=== PATIENT | female | born 1935 | race Caucasian/White ===

== ENCOUNTER 2017-05-20 09:46 | Emergency (ER) | payer MEDICARE, OTHER ==
[~2017-05-20] VITALS: Ht 167.6 cm; Wt 77.3 kg
[~2017-05-20 09:46] MED LIST: ALTACE10 MG PO; BUSPIRONE PO; BYSTOLIC5 MG PO; DIOVAN160 MG PO; DIOVAN320 MG PO; FISH OIL CONC1000 MG PO; FLAXSEED OIL1000 MG PO; LIPITOR20 MG PO; MVI; PERCOCET 325 MG1 TA2 PO; PREDNISONE20 MG PO; PREMARIN 1.251.25 MG PO; PREVACID 30MG30 M1 PO; VIVELLE0.1 MG/24 TD; ZITHROMAX TRI-500 MG PO
[2017-05-20 09:58] VITALS: TEMP 98.5
[2017-05-20 10:29] LABS: BASO # 0.1 (0.0-0.2); BASO % 0.7 % (0.0-2.0); EOS % 0.4 % (0-4.0); GRAN # 4.7 (1.4-6.5); GRAN % 63.1 % (42.2-75.2); HEMATOCRIT 42.7 % (37.0-47.0); LYMPH # 2.1 (1.2-3.4); LYMPH % 28.5 % (20.0-51.0); MEAN CELL VOLUME 102 fl (80.0-100.0); MEAN CORPUSCULAR HEMOGLOBIN 33 pg (27.0-31.0); MEAN CORPUSCULAR HGB CONC 33 g/dl (33.0-37.0); MEAN PLATELET VOLUME 11.4 fl (7.4-10.4); MONO # 0.5 (0.1-0.6); MONO % 6.9 % (1.7-9.3); PLATELET COUNT 187 K/mm3 (130-400); RED BLOOD COUNT 4.19 M/mm3 (4.10-5.30); REDCELL DISTRIBUTION WIDTH-CV 12.2 % (11.5-14.5)
[2017-05-20 10:40] LABS: PROTHROMBIN TIME 11.3 SECONDS (9.7-12.8)
[2017-05-20 10:41] LABS: ALANINE AMINOTRANSFERASE 24 U/L (9-52); ALBUMIN 4.2 gm/dL (3.5-5.0); ALKALINE PHOSPHATASE 74 U/L (50-136); ANION GAP 8 mmol/L (7-16); AST,SGOT 22 U/L (15-37); BILIRUBIN,TOTAL 0.4 mg/dL (0.0-1.0); BLOOD UREA NITROGEN 14 mg/dL (7-17); CALCIUM 9.4 mg/dL (8.4-10.2); CARBON DIOXIDE 28 mmol/L (22-30); CHLORIDE 104 mmol/L (98-107); CREATININE, serum 0.94 mg/dL (0.52-1.25); GLUCOSE 102 mg/dL (74-106); SODIUM 140 mmol/L (137-145); TOTAL PROTEIN 7.6 gm/dL (6.4-8.2)
[2017-05-20 10:42] LABS: PARTIAL THROMBOPLASTIN TIME 29.2 SECONDS (26.0-37.0)
[2017-05-20 10:52] LABS: TROPONIN-I < 0.012 ng/mL (0.000-0.034)
[2017-05-20 12:33] VITALS: BP 150/83; PULSE 82
== END 2017-05-20 12:33 | disposition home or self-care (01) ==
LOC: COL.ER 09:46
PROVIDERS: Family Medicine
DX: I24.9 Acute ischemic heart disease, unspecified (principal); R07.9 Chest pain, unspecified; K21.9 Gastro-esophageal reflux disease without esophagitis; I10 Essential (primary) hypertension; E78.5 Hyperlipidemia, unspecified

== ENCOUNTER 2018-07-15 09:10 | Day surgery (SDC) | payer OTHER, MEDICARE ==
[~2018-07-15] VITALS: Ht 167.6 cm; Wt 77.3 kg
[2018-07-15 09:41] LABS: BASO % 0.4 % (0.0-2.0); EOS % 0.5 % (0-4.0); GRAN # 4.6 (1.4-6.5); GRAN % 60.3 % (42.2-75.2); HEMATOCRIT 44.8 % (37.0-47.0); HEMOGLOBIN 14.5 g/dl (12.5-16.0); LYMPH # 2.4 (1.2-3.4); LYMPH % 31.5 % (20.0-51.0); MEAN CELL VOLUME 100 fl (80.0-100.0); MEAN CORPUSCULAR HEMOGLOBIN 33 pg (27.0-31.0); MEAN CORPUSCULAR HGB CONC 32 g/dl (33.0-37.0); MONO # 0.5 (0.1-0.6); MONO % 6.8 % (1.7-9.3); PLATELET COUNT 210 K/mm3 (130-400); RED BLOOD COUNT 4.46 M/mm3 (4.10-5.30); REDCELL DISTRIBUTION WIDTH-CV 12.7 % (11.5-14.5)
[2018-07-15 09:47] LABS: INR 0.9 (0.8-3.0); PROTHROMBIN TIME 10.4 SECONDS (9.7-12.8)
[2018-07-15 09:48] LABS: ALANINE AMINOTRANSFERASE < 6 U/L (9-52); ALBUMIN 3.9 gm/dL (3.5-5.0); ALKALINE PHOSPHATASE 90 U/L (50-136); ANION GAP 7 mmol/L (7-16); AST,SGOT 23 U/L (15-37); BILIRUBIN,TOTAL 0.4 mg/dL (0.0-1.0); BLOOD UREA NITROGEN 11 mg/dL (7-17); CALCIUM 9.7 mg/dL (8.4-10.2); CARBON DIOXIDE 30 mmol/L (22-30); CHLORIDE 101 mmol/L (98-107); CREATININE, serum 1.03 mg/dL (0.52-1.25); GLUCOSE 96 mg/dL (74-106); LIPASE 70 U/L (23-300); POTASSIUM 4.2 mmol/L (3.4-5.0); SODIUM 138 mmol/L (137-145); TOTAL PROTEIN 8.1 gm/dL (6.4-8.2)
[2018-07-15 09:49] LABS: PARTIAL THROMBOPLASTIN TIME 28.8 SECONDS (26.0-37.0)
[2018-07-15 10:00] LABS: TROPONIN-I < 0.012 ng/mL (0.000-0.035)
[2018-07-15] MEDS ORDERED: LIPITOR20 MG PO (15:49)
[2018-07-15] MEDS ORDERED: SINGULAIR 110 MG/TAB PO (15:50)
[2018-07-15] MEDS ORDERED: BUSPAR DIVIDOSE15 MG PO (15:50)
[2018-07-15] MEDS ORDERED: PROLIA60 MG/ML SQ (15:50)
[2018-07-15] MEDS ORDERED: DEXILANT60 MG PO (15:51)
[2018-07-15 18:10] VITALS: BP 149/72; PULSE 64; TEMP 98
--- NOTE | 2018-07-15 18:10 | NUR ---
Patient arrives to [facility] [place] [facility] via cart, accompanied by FUR POINTER Morena. She is alert and oriented, sitting up in bed. Monitoring applied - VSS and WNL on 2L nasal cannula. She denies any pain or nausea. Her left hand is pink, warm, and she has sensation to her fingers. Her operative site is covered with a splint dressing. She is offered and receives juice and pudding. Daughter at the bedside. Will continue to monitor.
[2018-07-15 18:25] VITALS: BP 159/85; PULSE 70
--- NOTE | 2018-07-15 18:25 | NUR ---
VSS and WNL on 2L nasal cannula. Patient is resting comfortably, eating and drinking, tolerating PO well. Neurovascular assessment of her LUE remains WNL.
--- NOTE | 2018-07-15 18:27 | NUR ---
Called Dr. Man to notify him of patient's allergy to prescribed doxycycline. Per Dr. Mna, disregard order for doxycycline and he will prescribe her a different antibiotic at her follow-up appointment tomorrow morning in the office.
[2018-07-15 18:34] VITALS: TEMP 98
[2018-07-15 18:40] VITALS: BP 150/64; PULSE 71
--- NOTE | 2018-07-15 18:40 | NUR ---
Patient complains of some mild pain in her left hand. VSS and WNL on room air (oxygen titrated to room air at 1825).
--- NOTE | 2018-07-15 18:52 | NUR ---
Patient given PRN PO [place] for mild pain in left hand at this time.
--- NOTE | 2018-07-15 19:23 | NUR ---
Patient assisted to the restroom at 1900, voids, and returns to room. PIV removed with catheter intact and hemostasis achieved. Discharge criteria has been met. Discharge instructions discussed, denies any questions, and verbalizes understanding. Assisted patient to change to clothing. Escorted to exit via wheelchair. Discharged to home in private vehicle to the care of her daughter at 1923.
== END 2018-07-15 19:23 | disposition home or self-care (01) ==
LOC: COL.ER 09:10 → SDCO 17:30
PROVIDERS: Emergency Medicine
DX: S62.615B Displaced fracture of proximal phalanx of left ring finger, initial encounter for open fracture (principal); Z90.710 Acquired absence of both cervix and uterus; Z88.2 Allergy status to sulfonamides; Z88.0 Allergy status to penicillin; Z88.1 Allergy status to other antibiotic agents; Z90.49 Acquired absence of other specified parts of digestive tract
CPT/HCPCS: J2370; J2405; J2704; J3010; J3370; J7030; J7050; Q9967

== ENCOUNTER 2018-09-12 12:14 | Outpatient (CLI) | payer MEDICARE, OTHER ==
[~2018-09-12] VITALS: Ht 167.6 cm; Wt 80.1 kg
[~2018-09-12 12:14] MED LIST changes: +BUSPAR DIVIDOSE15 MG PO; +DEXILANT60 MG PO; +PROLIA60 MG/ML SQ; +SINGULAIR 110 MG/TAB PO
[2018-09-12] MEDS ORDERED: VITAMIN B11000 MCG/M IM (12:42)
[2018-09-12] MEDS ORDERED: FLONASEALLERGY NS (12:43)
[2018-09-12] MEDS ORDERED: ALORA TD (12:44)
[2018-09-12] MEDS ORDERED: TESSALON P100 MG/CAP PO (12:44)
[2018-09-12] MEDS ORDERED: CALCIUM ASCORB500 MG PO (12:45)
[2018-09-12] MEDS ORDERED: MASON NATURAL2000 IU PO (12:46)
[2018-09-12 12:47] VITALS: BP 119/66; PULSE 75; TEMP 98
== END 2018-09-12 12:30 ==
LOC: EUO 12:14
DX: M81.0 Age-related osteoporosis without current pathological fracture (principal)
CPT/HCPCS: J0897

== ENCOUNTER → 2018-12-16 | Outpatient (CLI) | payer MEDICARE, OTHER ==
[~2018-12-16] MED LIST changes: +ALORA TD; +CALCIUM ASCORB500 MG PO; +FLONASEALLERGY NS; +MASON NATURAL2000 IU PO; +TESSALON P100 MG/CAP PO; +VITAMIN B11000 MCG/M IM
== END ==
LOC: MC.RAD 10:38
DX: Z12.31 Encounter for screening mammogram for malignant neoplasm of breast (principal)

== ENCOUNTER 2019-03-17 09:44 | Outpatient (CLI) | payer MEDICARE, OTHER ==
[~2019-03-17] VITALS: Ht 167.6 cm; Wt 76.8 kg
[2019-03-17 10:23] VITALS: BP 110/72; PULSE 66; TEMP 98
== END 2019-03-17 10:24 | disposition home or self-care (01) ==
LOC: EUO 09:44
DX: M81.0 Age-related osteoporosis without current pathological fracture (principal)
CPT/HCPCS: J0897

== ENCOUNTER → 2019-06-30 | Outpatient (CLI) | payer MEDICARE, OTHER | LOC: COL.VAS 13:40 | DX: M79.89 Other specified soft tissue disorders (principal) ==

== ENCOUNTER 2019-09-17 13:56 | Outpatient (CLI) | payer MEDICARE, OTHER ==
[~2019-09-17] VITALS: Ht 167.6 cm; Wt 81.5 kg
[2019-09-17 15:30] VITALS: BP 138/72; PULSE 75; TEMP 98.3
== END 2019-09-17 17:16 | disposition home or self-care (01) ==
LOC: EUO 13:56
DX: M81.0 Age-related osteoporosis without current pathological fracture (principal)
CPT/HCPCS: J0897

== ENCOUNTER → 2019-12-22 | Outpatient (CLI) | payer MEDICARE, OTHER ==
[~2019-12-22] MED LIST changes: +BUSPIRONE HCL7.5 MG PO; +GENTAMICIN NAS; +MEDROL 4MG DOSPA4 MG PO; +NEURONTIN100 MG/CAP PO; +[UNRECOGNIZED DRUG - CODE] NAS
== END ==
LOC: MC.RAD 09:46
DX: Z12.31 Encounter for screening mammogram for malignant neoplasm of breast (principal)

== ENCOUNTER 2020-03-24 14:00 | Outpatient (CLI) | payer MEDICARE, OTHER ==
[~2020-03-24] VITALS: Ht 167.6 cm; Wt 82.6 kg
[2020-03-24 14:36] VITALS: BP 138/84; PULSE 78; TEMP 98.7
== END 2020-03-24 15:44 | disposition home or self-care (01) ==
LOC: EUO 14:00
DX: M85.80 Other specified disorders of bone density and structure, unspecified site (principal)
CPT/HCPCS: J0897

== ENCOUNTER 2020-09-22 14:26 | Outpatient (CLI) | payer MEDICARE, OTHER ==
[~2020-09-22] VITALS: Ht 167.6 cm; Wt 85.0 kg
[2020-09-22 15:02] VITALS: BP 140/88; PULSE 67; TEMP 98.4
== END 2020-09-22 17:02 | disposition home or self-care (01) ==
LOC: EUO 14:26
DX: M81.0 Age-related osteoporosis without current pathological fracture (principal)
CPT/HCPCS: J0897

== ENCOUNTER → 2021-01-27 | Outpatient (CLI) | payer MEDICARE, OTHER | LOC: MC.RAD 13:30 | DX: Z12.31 Encounter for screening mammogram for malignant neoplasm of breast (principal) ==

== ENCOUNTER → 2021-02-13 | Outpatient (CLI) | payer MEDICARE, OTHER | LOC: COL.RAD 11:52 | DX: N28.1 Cyst of kidney, acquired (principal) ==

== ENCOUNTER 2021-03-07 10:30 | Emergency (ER) | payer MEDICARE, OTHER ==
[~2021-03-07] VITALS: Ht 162.6 cm; Wt 77.3 kg
[2021-03-07 10:39] VITALS: TEMP 97.6
[2021-03-07 12:37] VITALS: BP 149/87; PULSE 81
== END 2021-03-07 12:38 | disposition home or self-care (01) ==
LOC: COL.ER 10:30
DX: L50.9 Urticaria, unspecified (principal); T50.8X5A Adverse effect of diagnostic agents, initial encounter; I10 Essential (primary) hypertension; F41.9 Anxiety disorder, unspecified; Z79.899 Other long term (current) drug therapy
CPT/HCPCS: J1200; J7030

== ENCOUNTER → 2021-04-05 | Outpatient (CLI) | payer MEDICARE, OTHER ==
[~2021-04-05] VITALS: Ht 162.6 cm; Wt 81.0 kg
[2021-04-05 14:20] VITALS: BP 131/72; PULSE 80; TEMP 98.1
== END ==
LOC: EUO 13:49
DX: M81.0 Age-related osteoporosis without current pathological fracture (principal)
CPT/HCPCS: J0897

== ENCOUNTER 2021-10-05 14:36 | Outpatient (CLI) | payer MEDICARE, OTHER ==
[~2021-10-05] VITALS: Ht 162.6 cm; Wt 80.1 kg
[2021-10-05 15:00] VITALS: BP 115/66; PULSE 74; TEMP 98.1
[2021-10-05] MEDS ORDERED: CALCIUM 600600 MG PO (15:45)
[2021-10-05] MEDS ORDERED: GENTAMICIN I40 MG/ML NAS (15:47)
[2021-10-05] MEDS ORDERED: NORVASC 5MG5 MG/TAB PO (15:57)
[2021-10-05] MEDS ORDERED: FLONASEALLERGY NS (15:58)
[2021-10-05] MEDS ORDERED: MASON NATURAL2000 IU PO (15:59)
[2021-10-05] MEDS ORDERED: FLEXERIL 1010 MG/TAB PO (15:59)
[2021-10-05] MEDS ORDERED: MOBIC 7.5MG7.5 MG PO (16:00)
== END 2021-10-05 16:04 | disposition home or self-care (01) ==
LOC: EUO 14:36
DX: M81.0 Age-related osteoporosis without current pathological fracture (principal)
CPT/HCPCS: J0897

== ENCOUNTER → 2022-02-13 | Outpatient (CLI) | payer MEDICARE, OTHER ==
[~2022-02-13] MED LIST changes: +CALCIUM 600600 MG PO; +FLEXERIL 1010 MG/TAB PO; +GENTAMICIN I40 MG/ML NAS; +MOBIC 7.5MG7.5 MG PO; +NORVASC 5MG5 MG/TAB PO
== END ==
LOC: MC.RAD 10:47
DX: Z12.31 Encounter for screening mammogram for malignant neoplasm of breast (principal)

== ENCOUNTER 2024-01-09 17:19 | Inpatient (IN) | payer MEDICARE, OTHER ==
[~2024-01-09] VITALS: Ht 162.6 cm; Wt 69.2 kg
[~2024-01-09 17:19] MED LIST changes: -FLONASE NASAL S16 GM NS; -VIVELLE-DO0.075 MG/2 TD; -ZYVOX 600MG600 MG PO
[2024-01-09 18:58] LABS: BASO % 0.5 % (0.0-2.0); EOS % 0.4 % (0.0-4.0); GRAN % 65.1 % (42.2-75.2); LYMPH # 1.9 K/mm3 (1.2-3.4); MEAN CELL VOLUME 104 fl (80.0-100.0); MEAN CORPUSCULAR HEMOGLOBIN 34 pg (27-31); MEAN CORPUSCULAR HGB CONC 33 g/dl (33.0-37.0); MEAN PLATELET VOLUME 11.4 fl (7.4-10.4); MONO # 0.7 K/mm3 (0.1-0.6); MONO % 8.7 % (1.7-9.3); PLATELET COUNT 175 K/mm3 (130-400); RED BLOOD COUNT 3.52 M/mm3 (4.10-5.30); REDCELL DISTRIBUTION WIDTH-CV 12.8 % (11.5-14.5)
[2024-01-09 19:01] LABS: HEMATOCRIT 36.5 % (37.0-47.0)
[2024-01-09 19:19] LABS: BILIRUBIN,TOTAL 0.4 mg/dL (0.2-1.2); CALCIUM 7.9 mg/dL (8.4-10.2); CREATININE, serum 1.65 mg/dL (0.57-1.11); TOTAL PROTEIN 6.9 g/dl (6.2-8.1)
[2024-01-09 19:26] LABS: TROPONIN-I 0.016 ng/mL (0.00-0.033)
[2024-01-09] MEDS ORDERED: Gabapentin 300 MG CAP PO ONE (19:30)
[2024-01-09] MEDS ORDERED: Gabapentin 100 MG CAP PO ONE (19:45)
[2024-01-09] MEDS ORDERED: diphenhydrAMINE 50 MG/ML 1 ML VIAL IV ONE ×2 (19:45→21:15)
[2024-01-09] MEDS ORDERED: methylPREDNISolone Sod Succ 125 MG/2 ML VIAL IV ONE (19:45)
[2024-01-09 20:50] LABS: URINE APPEARANCE CLEAR (CLEAR/HAZY); URINE BLOOD NEGATIVE (NEGATIVE); URINE COLOR YELLOW (YELLOW); URINE GLUCOSE NEGATIVE (NEGATIVE); URINE KETONE TRACE (NEGATIVE); URINE NITRATE NEGATIVE (NEGATIVE); URINE PROTEIN(semi-quant) TRACE (NEGATIVE)
[2024-01-09] MEDS ORDERED: Iohexol 300 - 100 ML VIAL IV ONE (20:55)
[2024-01-09] MEDS ORDERED: NS 50 ML IV SCH (20:55)
[2024-01-09 21:53] LABS: COLLECTION METHOD CLEAN CATCH
[2024-01-09] MEDS ORDERED: Albuterol/Ipratropium 3 MG-0.5 MG/3 ML Neb Soln IH PRN (23:45)
[2024-01-09] MEDS ORDERED: Acetaminophen 325 MG TAB PO PRN (23:45)
[2024-01-09] MEDS ORDERED: Ondansetron 4 MG/2 ML VIAL IV PRN (23:45)
[2024-01-10] VITALS (9 sets, daily range): BP systolic 127–169; BP diastolic 71–89; PULSE 75–89; TEMP 97.4–98.4
[2024-01-10] MEDS ORDERED: FLONASE NASAL S16 GM NS (02:17)
[2024-01-10] MEDS ORDERED: VIVELLE-DO0.075 MG/2 TD (02:20)
[2024-01-10] MEDS ORDERED: Gabapentin 100 MG CAP PO PRN (02:45)
--- NOTE | 2024-01-10 03:25 | NUR ---
patient arrived from ED around 0100, alert and oriented x4 with some forgetfullness. pt unreliable source for med rec, completed using combination of recently picked up prescriptions and med list provided by pt and family dated from 2020, copy placed in chart. denies chest pain and reports feeling short of breath at rest, o2 sats in 90s on room air. no remarkable skin findings at this time. ambulates with steady gait and SBA. warm blankets provided. pt reports feeling nauseaous, upon reassessment pt refused zofran stating "feeling has been going away". per request for "worsening leg pain", ODALYS Pena notified of pt request for gabapentin, new orders placed and initiated. fall precautions in place, call light within reach. daughter at bedside. pt has no further needs, questions or concerns at this time.
[2024-01-10] MEDS ORDERED: cefTRIAXone 2 G in Water For Injection,Sterile 20 ML IV SCH (03:30)
[2024-01-10 07:20] LABS: BASO % 0.2 % (0.0-2.0); GRAN # 3.4 K/mm3 (1.4-6.5); GRAN % 83.1 % (42.2-75.2); HEMOGLOBIN 11.6 g/dl (12.5-16.0); LYMPH # 0.6 K/mm3 (1.2-3.4); LYMPH % 15.3 % (20.0-51.0); MEAN CELL VOLUME 101 fl (80.0-100.0); MEAN CORPUSCULAR HEMOGLOBIN 34 pg (27-31); MEAN CORPUSCULAR HGB CONC 33 g/dl (33.0-37.0); MEAN PLATELET VOLUME 11.6 fl (7.4-10.4); MONO # 0.1 K/mm3 (0.1-0.6); MONO % 1.2 % (1.7-9.3); PLATELET COUNT 162 K/mm3 (130-400); RED BLOOD COUNT 3.46 M/mm3 (4.10-5.30); REDCELL DISTRIBUTION WIDTH-CV 12.6 % (11.5-14.5)
[2024-01-10 07:30] LABS: HEMATOCRIT 34.9 % (37.0-47.0)
[2024-01-10 07:35] LABS: CALCIUM 7.8 mg/dL (8.4-10.2); CREATININE, serum 1.06 mg/dL (0.57-1.11); POTASSIUM 3.8 mEq/L (3.5-4.5)
[2024-01-10] MEDS ORDERED: busPIRone 7.5 MG TABLET PO SCH (09:00)
[2024-01-10] MEDS ORDERED: amLODIPine 5 MG TAB PO SCH (09:00)
[2024-01-10] MEDS ORDERED: BUSPAR DIVIDOSE15 MG PO (09:01)
--- NOTE | 2024-01-10 09:36 | NUR ---
Drawer In Stitch Bonding Machine met with patient and her daughter, Ne (ph#[phone]) to discuss discharge planning. Patient lives alone in [place] and sees Dr. Santa at [facility] for primary care. Patient gets medications either through [facility] or at [facility] with no difficulties. Patient does not use any DME and is independent with ADLS. Patient's daughter, Ne remarked that patient is even independent with all her own yard work. Patient stated her DPOA-HC is her daughter, Ne. Patient plans to return home at time of discharge and is anxious to do so as quickly as possible. Discharge Plan: Home
[2024-01-10] MEDS ORDERED: Azithromycin 250 MG TAB PO SCH (09:45)
--- NOTE | 2024-01-10 11:59 | NUR ---
D: Agricultural Science Professor stopped by room on rounds. A: Pt was resting and content with daughter in the room. No needs right now. P: Agricultural Science Professor informed pt that if she needed anything from the grinding and polishing laborer area to let her nurse know. Agricultural Science Professor will follow up as needed.
[2024-01-10 12:12] LABS: INR 1.2 (0.8-3.0)
[2024-01-10 14:29] LABS: PLEURAL FLUID RBC 1000 /mm3 (0-0); PLEURAL FLUID WBC 852 /mm3
[2024-01-10 14:30] LABS: PLEURAL FLUID APPEARANCE HAZY; PLEURAL FLUID COLOR YELLOW
[2024-01-10] MEDS ORDERED: ZITHROMAX TRI-500 MG PO (15:48)
[2024-01-10] MEDS ORDERED: ZYVOX 600MG600 MG PO (16:54)
[2024-01-10] MEDS ORDERED: Linezolid 600 MG TAB PO ONE (17:00)
--- NOTE | 2024-01-10 18:04 | NUR ---
DISCHARGE INSTRUCTIONS PROVIDED. PATIENT EDUCATION GIVEN. IV DC'D. FOLLOW UP APPOINTMENTS DISCUSSED. MEDICATIONS REVIEWED. NEW ANTIBIOTIC ADMINISTERED, PATIENT MONITORED FOR [address] GILLESPIE. PATIENT WAS ASYMPTOMATIC FOR SIGNS/SYMPTOMS OF ANAPHYLAXIS, PATIENT DENIES ANY QUESTIONS OR CONERNS. PATIENT ESCORTED OUT VIA WHEELCHAIR.
[2024-01-10] MEDS ORDERED: Atorvastatin 20 MG TAB PO SCH (21:00)
[2024-01-11] MEDS ORDERED: cefTRIAXone 1 G in Water For Injection,Sterile 10 ML IV SCH (06:00)
[2024-01-24] MEDS ORDERED: BUSPIRONE HCL7.5 MG PO (08:39)
[2024-01-24] MEDS ORDERED: VIVELLE-DO0.075 MG/2 TD (08:45)
== END 2024-01-10 18:06 | disposition home or self-care (01) | DRG 305 ==
LOC: COL.ER 17:19 → SURG 23:41
PROVIDERS: Physician Assistant; ADMIT Internal Medicine
DX: I16.0 Hypertensive urgency (principal); J90 Pleural effusion, not elsewhere classified; C34.90 Malignant neoplasm of unspecified part of unspecified bronchus or lung; I10 Essential (primary) hypertension; G43.909 Migraine, unspecified, not intractable, without status migrainosus; K21.9 Gastro-esophageal reflux disease without esophagitis; F41.9 Anxiety disorder, unspecified; M81.0 Age-related osteoporosis without current pathological fracture; E78.5 Hyperlipidemia, unspecified; Z88.0 Allergy status to penicillin; Z88.8 Allergy status to other drugs, medicaments and biological substances; Z88.4 Allergy status to anesthetic agent; Z88.5 Allergy status to narcotic agent; Z88.7 Allergy status to serum and vaccine; Z88.1 Allergy status to other antibiotic agents; Z88.3 Allergy status to other anti-infective agents; Z91.02 Food additives allergy status; Z91.040 Latex allergy status; Z90.49 Acquired absence of other specified parts of digestive tract; Z90.710 Acquired absence of both cervix and uterus
CPT/HCPCS: J0696; J1200; J2919; Q9967

== ENCOUNTER → 2024-01-09 | Outpatient (CLI) | payer MEDICARE, OTHER ==
[~2024-01-09] MED LIST changes: -ALORA TD; +CLIMARA0.075 MG/2 TD; +FLONASE NASAL S16 GM NS; +VIVELLE-DO0.075 MG/2 TD; +ZYVOX 600MG600 MG PO
== END ==
LOC: COL.VAS 10:49
DX: I08.0 Rheumatic disorders of both mitral and aortic valves (principal); J90 Pleural effusion, not elsewhere classified

== ENCOUNTER 2024-01-20 06:54 | Outpatient (CLI) | payer MEDICARE, OTHER ==
[~2024-01-20] VITALS: Ht 162.6 cm; Wt 65.9 kg
[~2024-01-20 06:54] MED LIST changes: +FLONASE NASAL S16 GM NS; +VIVELLE-DO0.075 MG/2 TD; +ZYVOX 600MG600 MG PO
[2024-01-20 07:49] VITALS: BP 137/83; PULSE 82; TEMP 98
[2024-01-20 08:55] VITALS: BP 154/75; PULSE 63; TEMP 97.1
[2024-01-20 09:10] VITALS: BP 156/70; PULSE 78
[2024-01-20 09:25] VITALS: BP 157/70; PULSE 71
[2024-01-20 09:40] VITALS: BP 138/80; PULSE 68
--- NOTE | 2024-01-20 10:14 | NUR ---
0855: PT TO [facility] FROM PROCEDURE ROOM. ALERT AND ORIENTED. VSS. NO C/O PAIN OR SHORTNESS OF BREATH. PT C/O SOME DIZZINESS. REQUESTING ORANGE JUICE TO DRINK. WARM BLANKET PROVIDED. RESTING IN COT. CALL LIGHT IN REACH. RUTH ANN CATES, AT BEDSIDE. 0910: ALERT AND ORIENTED. RADIOLOGY IN FOR CHEST X-RAY AT THIS TIME. PT TOLERATING ORANGE JUICE. DENIES NAUSEA, PAIN, OR SHORTNESS OF BREATH. NO C/O DIZZINESS AT THIS TIME. ADDITIONAL WARM BLANKET PROVIDED. RESTING IN COT. CALL LIGHT IN REACH. RUTH ANN CATES, AT BEDSIDE. 0925: ALERT AND ORIENTED. PT CONTINUES TO DENY NAUSEA, PAIN OR SHORTNESS OF BREATH. STATED SHE FEELS DIZZY AGAIN BUT STATED IT "COMES AND GOES." VSS. PT CONCERNED SYSTOLIC B/P WAS IN 150'S. TOLD PT I WOULD INFORM DR. SANTIAGO. NO FURTHER NEEDS NOTED. RESTING IN COT. CALL LIGHT IN REACH. RUTH ANN CATES, AT BEDSIDE. 0940: ALERT AND ORIENTED. DENIES NAUSEA, PAIN OR SHORTNESS OF BREATH. VSS. SYSTOLIC B/P DOWN TO 138. NO C/O OF DIZZINESS AT THIS TIME. VSS. NO FURTHER NEEDS NOTED. RESTING IN COT. CALL LIGHT IN REACH. RUTH ANN CATES, AT BEDSIDE. 0950: DR. SANTIAGO CALLED AND STATED OK FOR PT TO DISCHARGE. NOTIFIED DR. SANTIAGO THAT PT C/O DIZZINESS OFF AND ON AND STATED THE PT CONCERNS ABOUT SYSTOLIC B/P IN 150'S BUT LAST B/P WAS 138. NO NEW ORDERS RECEIVED AND DR. SANTIAGO STATED PT WAS CLEAR TO DISCHARGE. 0955: DISCHARGE EDUCATION COMPELETE AT THIS TIME. PT STATED UNDERSTANDING OF DISCHARGE INSTRUCTIONS. QUESTIONS WELCOMED AND ANSWERED. DISCHARGE PAPERWORK GIVEN TO PT. PT DENIES ASSISTANCE WITH DRESSING. 1000: PT OFF UNIT AT THIS TIME VIA WHEELCHAIR. PT DISCHARGED TO HOME VIA PERSONAL VEHICLE WITH RUTH ANN CATES.
== END 2024-01-20 10:00 | disposition home or self-care (01) ==
LOC: SDCO 06:54
DX: J90 Pleural effusion, not elsewhere classified (principal)
CPT/HCPCS: 19804

== ENCOUNTER 2024-01-24 08:02 | Outpatient (CLI) | payer MEDICARE, OTHER ==
[~2024-01-24] VITALS: Ht 162.6 cm; Wt 66.8 kg
[2024-01-24] VITALS (12 sets, daily range): BP systolic 156–1519; BP diastolic 80–89; PULSE 60–77; TEMP 98
[2024-01-24] MEDS ORDERED: BUSPAR DIVIDOSE15 MG PO (08:39)
[2024-01-24] MEDS ORDERED: NEURONTIN100 MG/CAP PO (08:40)
[2024-01-24] MEDS ORDERED: LIPITOR20 MG PO (08:41)
[2024-01-24] MEDS ORDERED: CLIMARA0.075 MG/2 TD (08:45)
--- NOTE | 2024-01-24 09:35 | NUR ---
Pt to ct per wheelchair. Monitors applied and O2 on at 2l/nc. Pt in supine position on ct table.
--- NOTE | 2024-01-24 09:41 | NUR ---
Dr Davis into room and talks with pt.
[2024-01-24] MEDS ORDERED: Midazolam 2 MG/2 ML VIAL IV SCH (09:45)
[2024-01-24] MEDS ORDERED: fentaNYL 50 MCG/ML 2 ML VIAL IV SCH (09:45)
--- NOTE | 2024-01-24 09:50 | NUR ---
Specimen obtained by Dr Davis and placed in formalin. Specimen labeled.
--- NOTE | 2024-01-24 11:59 | NUR ---
PT TOLERATED RECOVERY PERIOD WELL. VS REMAINED WITHIN NORMAL LIMITS. PT REMAINED FREE FROM SOB, CHEST DISCOMFORT, AND DIFFICULTY BREATHING. IV DISCONTINUED AND PT ASSISTED TO MAIN LOBBY VIA WHEELCHAIR. PT AND DAUGHTER VERBALIZED UNDERSTANDING OF DISCHARGE INSTRUCTIONS.
== END 2024-01-24 12:03 | disposition home or self-care (01) ==
LOC: COL.RAD 08:02
DX: C34.11 Malignant neoplasm of upper lobe, right bronchus or lung (principal)
CPT/HCPCS: J2250; J3010

== ENCOUNTER → 2024-02-06 | Outpatient (CLI) | payer MEDICARE, OTHER ==
[~2024-02-06] MED LIST changes: +Albuterol 0.083% Neb Soln 2.5 MG/3 ML UD IH ONE
== END ==
LOC: COL.CARD 12:38
DX: C34.91 Malignant neoplasm of unspecified part of right bronchus or lung (principal)

== ENCOUNTER 2024-02-10 13:30 | Observation (INO) | payer MEDICARE, OTHER ==
[~2024-02-10] VITALS: Ht 162.6 cm; Wt 65.9 kg
[~2024-02-10 13:30] MED LIST changes: -Albuterol 0.083% Neb Soln 2.5 MG/3 ML UD IH ONE
[2024-02-10 14:27] LABS: COLLECTION METHOD CLEAN CATCH
[2024-02-10 14:30] LABS: URINE APPEARANCE CLEAR (CLEAR/HAZY); URINE BLOOD NEGATIVE (NEGATIVE); URINE COLOR YELLOW (YELLOW); URINE GLUCOSE NEGATIVE (NEGATIVE); URINE KETONE NEGATIVE (NEGATIVE); URINE NITRATE NEGATIVE (NEGATIVE); URINE PROTEIN(semi-quant) NEGATIVE (NEGATIVE); URINE UROBILINOGEN 0.2 E.U/dL (0.2-1.0)
[2024-02-10 15:46] LABS: PROTHROMBIN TIME 11.2 SECONDS (9.7-12.8)
[2024-02-10 15:49] LABS: PARTIAL THROMBOPLASTIN TIME 25.6 SECONDS (26.0-37.0)
[2024-02-10 15:56] LABS: BILIRUBIN,TOTAL 0.6 mg/dL (0.2-1.2); CALCIUM 9.3 mg/dL (8.4-10.2); CREATININE, serum 0.86 mg/dL (0.57-1.11); POTASSIUM 4.1 mEq/L (3.5-4.5); TOTAL PROTEIN 6.5 g/dl (6.2-8.1)
[2024-02-10 16:01] LABS: TROPONIN-I 0.021 ng/mL (0.00-0.033)
[2024-02-10] MEDS ORDERED: [UNRECOGNIZED DRUG - REMARK] PO SCH ×2 (17:17→19:15)
[2024-02-10] MEDS ORDERED: Losartan 50 MG TAB PO ONE (17:45)
[2024-02-10] MEDS ORDERED: Acetaminophen 325 MG TAB PO PRN (19:30)
[2024-02-10] MEDS ORDERED: hydrALAZINE 20 MG/ML 1 ML VIAL IM PRN (19:30)
--- NOTE | 2024-02-10 19:45 | NUR ---
REPORT RECIEVED FROM BERRY ORNELAS IN ER AT THIS TIME. PATIENT HAS NO IV ACCESS AND IS ON TELEMETRY.
[2024-02-10 20:07] VITALS: BP 196/89; PULSE 67; TEMP 98.4
--- NOTE | 2024-02-10 20:07 | NUR ---
FEMALE PATIENT ARRIVED TO ROOM #304 VIA WHEELCHAIR FROM ER. PATIENT ASSISTED TO BED WITH STAND BY ASSIST. GAIT STEADY. PATIENT INITAL INTAKE AND INITAL ASSESSMENT COMPLETED AT THIS TIME. PATIENT TOLERATED WELL. PATIENT GIVEN TWO WARM BLANKETS PER REQUEST. PATIENT VERBALIZED UNDERSTANDING OF CALL LIGHT AND BED CONTROLS. PATIENT REQUESTED SANDWICH AND SPRITE. PITCHER OF ICE WITH WATER, CUP OF ICE, SPRITE, SANDWHICH, JELLO, APPLESAUCE GIVEN TO PATIENT. PATIENT DENIES ANY OTHER NEEDS. TELEMETRY INTACT. BED IN LOW POSITION WITH WHEELS LOCKED WITH RAILS UP X3 AND CALL LIGHT WITHIN REACH. BED ALARM ON.
[2024-02-10 20:40] VITALS: BP_SYST 196
--- NOTE | 2024-02-10 20:45 | NUR ---
IV TO RIGHT HAND STARTED TIMES 1 STICK. #22 DIFUXIS. PATIENT TOLERATED WELL.
[2024-02-10] MEDS ORDERED: Gabapentin 100 MG CAP PO SCH (21:00)
--- NOTE | 2024-02-10 21:03 | NUR ---
PATIENT RESTING IN BED WITH TV OFF WITH NO FAMILY PRESENT WITH NO ACUTE DISTRESS NOTED. PATIENT ON ROOM AIR. TELEMETRY INTACT. INT TO RIGHT HAND INTACT WITH NO COMPLICATIONS NOTED. MEDICATION ADMINISTRATION COMPLETED AT THIS TIME. PATIENT TOLERATED WELL. PATIENT ASSISTED UP TO BATHROOM WITH STAND BY ASSIST. PATIENT VOIDED AND DID OWN PER CARE. SWEAT PANTS PLACED IN CLOSET PER PATIENT REQUST TO TAKE THEM OFF. PATIENT ASSISTED BACK TO BED AND HELPED TO REPOSITION FOR COMFORT. ALL NEEDS MET. BED IN LOW POSITION WITH WHEELS LOCKED WITH RAILS UP X3 AND CALL LIGHT WITHIN REACH. BED ALARM ON.
--- NOTE | 2024-02-10 22:18 | NUR ---
HOSPITALIST CARMENCITA ENCISO CALLED FOR PATIENT MEDICATION CHANGE. ORDER RECIEVED TO CANO HYDRALAZINE TO 10 MG IV EVERY 6 HOURS PRN.
[2024-02-10 22:50] LABS: BASO % 0.5 % (0.0-2.0); EOS # 0.1 K/mm3 (0.0-0.7); EOS % 0.9 % (0.0-4.0); GRAN # 3.9 K/mm3 (1.4-6.5); GRAN % 59.5 % (42.2-75.2); HEMATOCRIT 36.6 % (37.0-47.0); HEMOGLOBIN 12.4 g/dl (12.5-16.0); LYMPH % 29.9 % (20.0-51.0); MEAN CELL VOLUME 99 fl (80.0-100.0); MEAN CORPUSCULAR HEMOGLOBIN 34 pg (27-31); MEAN CORPUSCULAR HGB CONC 34 g/dl (33.0-37.0); MEAN PLATELET VOLUME 12.1 fl (7.4-10.4); MONO # 0.6 K/mm3 (0.1-0.6); MONO % 8.9 % (1.7-9.3); PLATELET COUNT 164 K/mm3 (130-400); REDCELL DISTRIBUTION WIDTH-CV 12.9 % (11.5-14.5)
[2024-02-10] MEDS ORDERED: hydrALAZINE 20 MG/ML 1 ML VIAL IV PRN (23:45)
[2024-02-11] VITALS (14 sets, daily range): BP systolic 128–156; BP diastolic 54–88; PULSE 61–82; TEMP 97.8–98.7
[2024-02-11 06:35] LABS: BASO % 0.7 % (0.0-2.0); EOS # 0.1 K/mm3 (0.0-0.7); EOS % 1.5 % (0.0-4.0); GRAN # 3.3 K/mm3 (1.4-6.5); GRAN % 54.1 % (42.2-75.2); HEMOGLOBIN 12.2 g/dl (12.5-16.0); LYMPH % 32.4 % (20.0-51.0); MEAN CELL VOLUME 99 fl (80.0-100.0); MEAN CORPUSCULAR HEMOGLOBIN 34 pg (27-31); MEAN CORPUSCULAR HGB CONC 34 g/dl (33.0-37.0); MEAN PLATELET VOLUME 12.4 fl (7.4-10.4); MONO # 0.7 K/mm3 (0.1-0.6); PLATELET COUNT 158 K/mm3 (130-400); RED BLOOD COUNT 3.58 M/mm3 (4.10-5.30); REDCELL DISTRIBUTION WIDTH-CV 12.9 % (11.5-14.5)
[2024-02-11 06:38] LABS: HEMATOCRIT 35.6 % (37.0-47.0)
[2024-02-11 06:51] LABS: CREATININE, serum 0.84 mg/dL (0.57-1.11); POTASSIUM 4.4 mEq/L (3.5-4.5)
--- NOTE | 2024-02-11 08:50 | NUR ---
Assessment completed. Pt a/o x4. X1 assist to chair, reports that she doesn't use a walker or cane at home- holds this nurses hand as she ambulates to steady herself. Pt reports coming to the ED with her glasses on and can no longer locate them. This nurse called ED charge nurse and Journeyman Electrician Pv Installer- neither were able to locate them in the ED. Per Wilmer Mcdaniels RN (ED nurse from last night) was contacted and reports he didn't recall patient having glasses. Spoke with patient's daughter, who is at bedside, and she reports that the patient was wearing glasses when she dropped her off in the ED last night. This nurse called Jacki in [facility]- Jacki contacted laundry services- if the glasses are located they will return from [place] on or Saturday. Patient and daughter notified and both verbalize understanding. Pt reports headache 05/01. Fall precautions in place.
[2024-02-11] MEDS ORDERED: busPIRone 7.5 MG TABLET PO SCH (09:00)
[2024-02-11] MEDS ORDERED: Losartan 50 MG TAB PO SCH (09:00)
[2024-02-11] MEDS ORDERED: Atorvastatin 20 MG TAB PO SCH (09:00)
[2024-02-11] MEDS ORDERED: Montelukast 10 MG TAB PO SCH (09:00)
--- NOTE | 2024-02-11 10:20 | NUR ---
Initial visit: Initial visit; Patient thanked Sales And Marketing Professional for offering Spiritual Care though wasn't interested in receiving visit or prayer.
--- NOTE | 2024-02-11 10:30 | NUR ---
Patient c/o headache- reporting pain at the base of her neck. Message provided. Tylenol admininstered. Ice pack placed on base of neck. Daughter at bedside.
--- NOTE | 2024-02-11 11:00 | NUR ---
TIARRA met with patient and daughter Ne Choudhary ([phone]) to complete initial assessment for discharge planning. Ne is also patient's DPOA. Patient lives alone in [place] and is independent with all activities and continues to do her own yard work and mow her lawn. Patient sees Dr. Santa as her PCP and uses [facility] or [facility] pharmacy without difficulty. Patient states she has a 3 prong cane and walk in shower with seat and grab bars. Patient still drives and her daughter drives her to medical appointments. Patient plans to return home at discharge. Discussed following up with PCP if she feels she needs help at home at any time after discharge. Discharge plan: Home
--- NOTE | 2024-02-11 12:20 | NUR ---
Patient continues to c/o headache- warm moist pack provided and patient reports relief.
[2024-02-11] MEDS ORDERED: dilTIAZem 30 MG TAB PO SCH (12:37)
[2024-02-11] MEDS ORDERED: Meclizine 25 MG TAB PO SCH (12:39)
[2024-02-11] MEDS ORDERED: Cyclobenzaprine 10 MG TAB PO PRN (12:45)
--- NOTE | 2024-02-11 19:40 | NUR ---
Patient's headache resolved after receiving antivert, cardizem and neurontin this afternoon. Pt denies pain or needs at this time. Bedside report given to JOHNSON Easton.
--- NOTE | 2024-02-11 19:50 | NUR ---
PATIENT RESTING IN BED WITH TV ON WITH NO FAMILY PRESENT WITH NO ACUTE DISTRESS NOTED. PATIENT ON ROOM AIR. INT TO RIGHT HAND INTACT WITH NO COMPLICATIONS NOTED. TELEMETRY INTACT. ASSESSMENT COMPLETED AT THIS TIME. PATIENT TOELRATED WELL. PATIENT REQUESTED TO GO TO THE BATHROOM. PATIENT ASSISTED TO BATHROOM WITH STAND BY ASSIST. PATIENT VOIDED AND DID OWN GELY CARE. PATIENT ASSISTED BACK TO BED AND HELPED TO REPOSITION FOR COMFORT. PATIENT DENIES ANY OTHER NEEDS. BED IN LOW POSITION WITH WHEELS LOCKED WITH RAILS UP X3 AND CALL LIGHT WITHIN REACH. BED ALARM ON.
--- NOTE | 2024-02-11 20:08 | NUR ---
PATIENT RESTING IN BED WITH TV ON WITH NO FAMILY PRESENT WITH NO ACUTE DISTRESS NOTED. PATIENT ON ROOM AIR. INT TO RIGHT HAND INTACT WITH NO COMPLICATIONS NOTED. TELEMETRY INTACT. MEDICATION ADMINISTRATION COMPLETED. PATIENT TOLERATED WELL. PATIENT REQUESTED ICE CREAM AND WAS GIVEN. ALL NEEDS MET. BED IN LOW POSITION WITH WHEELS LOCKED WITH RAILS UP X3 AND CALL LIGHT WITHIN REACH. BED ALARM ON.
[2024-02-11] MEDS ORDERED: PREDNISONE PO SCH (22:00)
[2024-02-12] VITALS (7 sets, daily range): BP systolic 124–154; BP diastolic 73–76; PULSE 65–75; TEMP 98–98.9
[2024-02-12 06:03] LABS: BASO % 0.2 % (0.0-2.0); CREATININE, serum 0.87 mg/dL (0.57-1.11); EOS % 0.2 % (0.0-4.0); GRAN # 5.5 K/mm3 (1.4-6.5); GRAN % 86.1 % (42.2-75.2); HEMOGLOBIN 12.9 g/dl (12.5-16.0); LYMPH # 0.7 K/mm3 (1.2-3.4); LYMPH % 11.5 % (20.0-51.0); MEAN CELL VOLUME 101 fl (80.0-100.0); MEAN CORPUSCULAR HEMOGLOBIN 34 pg (27-31); MEAN CORPUSCULAR HGB CONC 34 g/dl (33.0-37.0); MEAN PLATELET VOLUME 11.9 fl (7.4-10.4); MONO # 0.1 K/mm3 (0.1-0.6); MONO % 1.7 % (1.7-9.3); PLATELET COUNT 147 K/mm3 (130-400); POTASSIUM 4.4 mEq/L (3.5-4.5); RED BLOOD COUNT 3.78 M/mm3 (4.10-5.30); REDCELL DISTRIBUTION WIDTH-CV 12.9 % (11.5-14.5)
[2024-02-12] MEDS ORDERED: diphenhydrAMINE 50 MG CAP PO SCH (10:00)
--- NOTE | 2024-02-12 11:37 | NUR ---
Pt to CT, with CT staff, via w/c.
[2024-02-12] MEDS ORDERED: Iohexol 300 - 100 ML VIAL IV ONE (11:45)
[2024-02-12] MEDS ORDERED: NS 100 ML IV SCH (11:46)
[2024-02-12] MEDS ORDERED: BONINE25 MG PO (14:06)
[2024-02-12] MEDS ORDERED: CARDIZEM CD 12120 MG PO (14:07)
--- NOTE | 2024-02-12 15:08 | NUR ---
Discharge instructions reviewed with patient and patient's daughter- both verbalize understanding. INT to RH d/c'd with cath tip intact. Tele d/c'd. Pt escorted to private vehcile via wheelchair and discharged home with daughter.
== END 2024-02-12 15:15 | disposition home or self-care (01) ==
LOC: COL.ER 13:30 → MEDICAL 19:03
PROVIDERS: Emergency Medicine; Physician Assistant; ADMIT Internal Medicine
DX: I16.0 Hypertensive urgency (principal); C34.90 Malignant neoplasm of unspecified part of unspecified bronchus or lung; E78.5 Hyperlipidemia, unspecified; R79.1 Abnormal coagulation profile; I10 Essential (primary) hypertension; J90 Pleural effusion, not elsewhere classified; M40.209 Unspecified kyphosis, site unspecified; F41.9 Anxiety disorder, unspecified; Z79.899 Other long term (current) drug therapy
CPT/HCPCS: G0378; J0360; J7512; Q9967